=== PATIENT | male | born 1955 | race Caucasian/White ===

== ENCOUNTER → 2016-08-16 | Outpatient (CLI) | payer BC ==
[~2016-08-16] MED LIST: ABILIFY20 MG PO; ACTOS45 MG PO; ALLEGRA 180MG180 MG PO; ALLEGRA180 MG PO; AMLOPIDINE PO; ANTACID500 MG PO; ASPIRIN 32325 MG/TA1 PO; ASPIRIN 32325 MG/TAB PO; ASPIRIN 81M81 MG/TA2 PO; BACTRIM DS 8001 TAB PO; BASAGLAR K100 UNIT/1 SQ; BENICAR HCT 12.1 TAB PO; BUPROPION100 MG PO; BUTALBITAL/APAP1 TA1 PO; BYETTA SC; BYSTOLIC10 MG PO; CALCIUM 600 PLU1 TAB PO; CELEBREX 200MG200 MG PO; CELEBREX200 MG PO; CEPHALEXIN500 M1 PO; DAZIDOX20 MG PO; DETROL LA4 MG PO; DETROL LA4 PO; DILAUDID 2MG TAB2 MG PO; DIOVAN HCT 25 M1 TA1 PO; EDARB4025TAB PO; EFFEXOR-XR150 MG PO; EXCEDRIN1 TAB PO; FERROUS SU325 MG/TAB PO; FEXOFENADINE180 MG PO; FLEXERIL 1010 MG/TAB PO; FLEXERIL10 MG PO; FLONASE0.05 MG/AC NS; FLOVENT 110MCG7.9 GM IH; FLOVENT DI100 MCG/Ac IH; Fioricet PO; GLUCOPHAGE XR500 M1 PO; GLUCOPHAGE1000 MG PO; GOOD NEIGHBOR P10 M5 PO; HYTRIN 5MG C5 MG/CAP PO; IMITREX 25MG TA25 MG PO; IMITREX50 MG PO; K-DUR 10 MEQ T10 MEQ PO; L THYROXINE PO; LAMICTAL PO; LAMICTAL150 MG PO; LANTUS100 U/ML SC; LASIX 20MG TABL20 MG PO; LASIX 40MG TABL40 MG PO; LIPITOR 10MG10 MG PO; NOVOLOG 100U100 U/M1 SQ; NOVOLOG FLEX100 U/ML SQ; ORPHENADRINE C100 MG PO; OXYCODONE HCL5 MG PO; OXYCONTIN20 MG PO; OXYCONTIN30 MG PO; OXYCONTIN40 MG PO; PRANDIN PO; PRANDIN1 MG PO; PRILOSEC 20MG20 MG PO; PROVENTIL0.09 MG/A1 IH; PROVIGIL PO; RISPERDAL PO; ROXICODONE15 MG PO; SYNTHROID0.05 MG/TA PO; TERAZOSIN HCL PO; THERAPEUTIC VIT1 CAP PO; TYLENOL 500MG500 MG PO; ULTRAM 50MG TAB50 MG PO; ULTRAM50 MG PO; UNABLE; UNICOMPLEX1 CAP PO; VALTREX 50500 MG/TAB PO; VALTREX500 MG PO; VALTURNA 300 MG1 TAB PO; VENTOLIN0.09 MG IH; WELLBUTRIN SR100 M1 PO; ZOFRAN ODT4 MG PO
== END ==
LOC: BHSO 15:44
DX: F33.1 Major depressive disorder, recurrent, moderate (principal)

== ENCOUNTER → 2016-09-26 | Outpatient (CLI) | payer BC | LOC: COL.RAD 09-20 16:27 | DX: M19.011 Primary osteoarthritis, right shoulder (principal); M84.421S Pathological fracture, right humerus, sequela; M24.011 Loose body in right shoulder ==

== ENCOUNTER → 2016-11-13 | Outpatient (CLI) | payer BC ==
[~2016-11-13] VITALS: Ht 180.3 cm; Wt 175.5 kg
[2016-11-13 06:44] VITALS: BP 165/86; PULSE 80
[2016-11-13 07:52] VITALS: BP 139/74; PULSE 91
[2016-11-13 07:53] VITALS: BP 158/75; PULSE 90
[2016-11-13 07:54] VITALS: BP 165/78; PULSE 88
== END ==
LOC: COL.CARD 11-09 06:30
DX: R06.02 Shortness of breath (principal); I10 Essential (primary) hypertension
CPT/HCPCS: A9502; J2785

== ENCOUNTER → 2017-03-04 | Outpatient (CLI) | payer BC | LOC: BHSO 15:25 | DX: F31.73 Bipolar disorder, in partial remission, most recent episode manic (principal) ==

== ENCOUNTER → 2017-09-06 | Outpatient (CLI) | payer BC ==
[~2017-09-06] MED LIST changes: -ABILIFY20 MG PO; +ABILIFY30 MG PO; +EDARB4012.5TAB PO; +PROVIGIL200 MG PO
== END ==
LOC: BHSO 16:00
DX: F31.81 Bipolar II disorder (principal)
CPT/HCPCS: G0463

== ENCOUNTER → 2017-09-06 | Outpatient (CLI) | payer BC | LOC: COL.VAS 12:50 | DX: M79.661 Pain in right lower leg (principal) ==

== ENCOUNTER 2017-09-10 06:30 | Outpatient (RCR) | payer BC ==
[2017-08-15 14:17] LABS: CREATININE, serum 1.1 mg/dL (0.66-1.25)
[2017-08-16 06:52] VITALS: BP 144/64; PULSE 76; TEMP 97.8
[2017-08-16 18:21] VITALS: BP 154/62; PULSE 76; TEMP 97.9
[2017-08-17 07:30] VITALS: BP 151/67; PULSE 87; TEMP 97.6
[2017-08-18 08:04] LABS: CREATININE, serum 0.93 mg/dL (0.66-1.25)
[2017-08-18 08:17] VITALS: BP 129/59; PULSE 69; TEMP 98.2
[2017-08-18 08:42] LABS: VANCOMYCIN TROUGH 16.44 ug/mL (7.00-20.00)
[2017-08-19 07:01] VITALS: BP 142/58; PULSE 77
[2017-08-19 19:12] VITALS: BP 161/72; PULSE 81; TEMP 98.2
[2017-08-20 06:43] VITALS: BP 151/63; PULSE 74; TEMP 99.2
[2017-08-20 19:46] VITALS: BP 160/70; PULSE 70; TEMP 98.6
[2017-08-21 06:42] VITALS: BP 152/71; PULSE 73; TEMP 98.1
[2017-08-21 18:34] VITALS: BP 161/80; PULSE 78; TEMP 98.2
[2017-08-22 06:35] VITALS: BP 149/65; PULSE 77; TEMP 98.1
[2017-08-22 17:53] VITALS: BP 147/67; PULSE 84; TEMP 98.6
[2017-08-23 06:50] VITALS: BP 147/72; PULSE 69; TEMP 97.8
[2017-08-23 17:30] VITALS: BP 156/81; PULSE 97; TEMP 97.5
[2017-08-24 07:58] VITALS: BP 152/70; PULSE 73; TEMP 97.8
[2017-08-25 07:35] VITALS: BP 150/69; PULSE 69; TEMP 97.9
[2017-08-26 06:54] VITALS: BP 158/75; PULSE 71; TEMP 98.3
[2017-08-26 17:45] VITALS: BP 166/78; PULSE 77; TEMP 98.4
[2017-08-27 07:24] VITALS: BP 150/77; PULSE 75; TEMP 98.5
[2017-08-27 17:30] VITALS: BP 156/68; PULSE 80; TEMP 98.3
[2017-08-28 07:36] VITALS: BP 141/64; PULSE 76; TEMP 97.1
[2017-08-28 18:13] VITALS: BP 134/57; PULSE 83; TEMP 98.2
[2017-08-29 07:10] VITALS: BP 110/51; PULSE 80; TEMP 98.1
[2017-08-29 17:30] VITALS: BP 137/64; PULSE 79; TEMP 98.6
[2017-08-30 06:37] VITALS: BP 127/65; PULSE 85; TEMP 98
[2017-08-30 18:21] VITALS: BP 144/64; PULSE 78; TEMP 98
[2017-08-31 07:36] VITALS: BP 133/36; PULSE 82; TEMP 97.9
[2017-09-01 08:37] VITALS: BP 118/57; PULSE 74; TEMP 97.7
[2017-09-02 06:54] VITALS: BP 117/66; PULSE 69; TEMP 97.3
[2017-09-02 17:30] VITALS: PULSE 71; TEMP 98.2
[2017-09-03 06:35] VITALS: BP 137/61; PULSE 70; TEMP 97.8
[2017-09-03 17:39] VITALS: BP 140/65; PULSE 88; TEMP 98
[2017-09-04 06:40] VITALS: BP 142/75; PULSE 73; TEMP 98.4
[2017-09-05 06:49] VITALS: BP 135/65; PULSE 72; TEMP 97.8
[2017-09-05 17:26] VITALS: BP 174/74; PULSE 86; TEMP 98
[2017-09-06 06:39] VITALS: BP 131/64; PULSE 70; TEMP 97.9
[2017-09-06 17:30] VITALS: BP 136/68; PULSE 76; TEMP 98
[2017-09-07 07:38] VITALS: BP 125/56; PULSE 67; TEMP 98
[2017-09-08 07:59] VITALS: BP 134/68; PULSE 72; TEMP 98.4
[2017-09-09 06:51] VITALS: BP 118/51; PULSE 72; TEMP 98
[2017-09-09 17:30] VITALS: BP 155/60; PULSE 75; TEMP 98.6
[~2017-09-10] VITALS: Ht 180.3 cm; Wt 171.6 kg
[2017-09-10 07:07] VITALS: BP 136/55; PULSE 68; TEMP 98.2
== END 2017-09-10 09:04 | disposition home or self-care (01) ==
LOC: EUO 06:30
PROVIDERS: Anesthesiology Pain Medicine
DX: Z45.2 Encounter for adjustment and management of vascular access device (principal); Z48.00 Encounter for change or removal of nonsurgical wound dressing; Z95.9 Presence of cardiac and vascular implant and graft, unspecified
CPT/HCPCS: C1751; J1644; J3370; J7040; J7050

== ENCOUNTER → 2017-09-11 | Outpatient (CLI) | payer BC | LOC: COL.RAD 07:25 | DX: M79.604 Pain in right leg (principal); Z87.81 Personal history of (healed) traumatic fracture; R93.7 Abnormal findings on diagnostic imaging of other parts of musculoskeletal system ==

== ENCOUNTER → 2018-03-13 | Outpatient (CLI) | payer BC | LOC: BHSO 16:10 | DX: F31.76 Bipolar disorder, in full remission, most recent episode depressed (principal) | CPT/HCPCS: G0463 ==

== ENCOUNTER 2018-06-16 15:42 | Outpatient (RCR) | payer BC | END 2018-08-27 14:18 | disposition home or self-care (01) | LOC: WSPT 15:42 | DX: E11.622 Type 2 diabetes mellitus with other skin ulcer (principal); L97.929 Non-pressure chronic ulcer of unspecified part of left lower leg with unspecified severity; L97.919 Non-pressure chronic ulcer of unspecified part of right lower leg with unspecified severity ==

== ENCOUNTER → 2018-09-09 | Outpatient (CLI) | payer BC | LOC: BHSO 16:08 | DX: F31.78 Bipolar disorder, in full remission, most recent episode mixed (principal) | CPT/HCPCS: G0463 ==

== ENCOUNTER → 2019-03-06 | Outpatient (CLI) | payer BC | LOC: BHSO 16:11 | DX: F31.76 Bipolar disorder, in full remission, most recent episode depressed (principal) | CPT/HCPCS: G0463 ==

== ENCOUNTER 2019-05-04 06:44 | Emergency (ER) | payer BC ==
[~2019-05-04] VITALS: Ht 180.3 cm; Wt 159.1 kg
[2019-05-04 06:54] VITALS: TEMP 98.1
[2019-05-04 09:09] VITALS: BP 125/78; PULSE 76
== END 2019-05-04 09:11 | disposition home or self-care (01) ==
LOC: COL.ER 06:44
DX: R04.0 Epistaxis (principal); E11.9 Type 2 diabetes mellitus without complications; I10 Essential (primary) hypertension; E66.9 Obesity, unspecified; F31.9 Bipolar disorder, unspecified; F42.9 Obsessive-compulsive disorder, unspecified; Z79.82 Long term (current) use of aspirin; Z79.51 Long term (current) use of inhaled steroids; Z79.84 Long term (current) use of oral hypoglycemic drugs; Z68.42 Body mass index [BMI] 45.0-49.9, adult

== ENCOUNTER → 2019-09-03 | Outpatient (CLI) | payer BC | LOC: BHSO 16:13 | DX: F31.76 Bipolar disorder, in full remission, most recent episode depressed (principal) | CPT/HCPCS: G0463 ==

== ENCOUNTER → 2020-02-23 | Outpatient (CLI) | payer BC | LOC: BHSO 16:13 | DX: F31.76 Bipolar disorder, in full remission, most recent episode depressed (principal) | CPT/HCPCS: G0463 ==

== ENCOUNTER 2020-09-25 17:47 | Emergency (ER) | payer BC, OTHER ==
[~2020-09-25] VITALS: Ht 180.3 cm; Wt 168.2 kg
[2020-09-25 17:54] VITALS: TEMP 98.1
[2020-09-25 18:53] LABS: BASO % 0.4 % (0.0-2.0); EOS # 0.3 (0.0-0.7); EOS % 3.7 % (0-4.0); GRAN # 6.9 (1.4-6.5); GRAN % 76.3 % (42.2-75.2); HEMATOCRIT 38.8 % (42.0-52.0); HEMOGLOBIN 12.7 g/dl (13.5-18.0); LYMPH # 1.1 (1.2-3.4); LYMPH % 11.8 % (20.0-51.0); MEAN CELL VOLUME 101 fl (80.0-100.0); MEAN CORPUSCULAR HEMOGLOBIN 33 pg (27.0-31.0); MEAN CORPUSCULAR HGB CONC 33 g/dl (33.0-37.0); MONO # 0.7 (0.1-0.6); MONO % 7.2 % (1.7-9.3); PLATELET COUNT 290 K/mm3 (130-400); RED BLOOD COUNT 3.86 M/mm3 (4.20-5.60); REDCELL DISTRIBUTION WIDTH-CV 13.4 % (11.5-14.5)
[2020-09-25 19:05] LABS: BILIRUBIN,TOTAL 0.3 mg/dL (0.0-1.0); CALCIUM 9.7 mg/dL (8.4-10.2); CREATININE, serum 1.21 (0.66-1.25); POTASSIUM 4.2 mmol/L (3.4-5.0)
[2020-09-25] MEDS ORDERED: CIPRO 500MG TA500 MG PO (20:28)
[2020-09-25] MEDS ORDERED: CLEOCIN HCL300 MG PO (20:29)
[2020-09-25 21:18] VITALS: BP 130/66; PULSE 73
[2020-10-02] MEDS ORDERED: DOXYCYCLINE 10100 MG PO (14:11)
== END 2020-09-25 21:30 | disposition home or self-care (01) ==
LOC: COL.ER 17:47
PROVIDERS: Nurse Practitioner Family
DX: S81.802A Unspecified open wound, left lower leg, initial encounter (principal); S81.801A Unspecified open wound, right lower leg, initial encounter; L03.115 Cellulitis of right lower limb; L03.116 Cellulitis of left lower limb; E86.0 Dehydration; E11.9 Type 2 diabetes mellitus without complications; I10 Essential (primary) hypertension; F20.9 Schizophrenia, unspecified; F31.9 Bipolar disorder, unspecified; E66.01 Morbid (severe) obesity due to excess calories; G43.909 Migraine, unspecified, not intractable, without status migrainosus; G89.29 Other chronic pain; M54.5 Low back pain; Z79.4 Long term (current) use of insulin; Z91.14 Patient's other noncompliance with medication regimen; Z79.891 Long term (current) use of opiate analgesic; X58.XXXA Exposure to other specified factors, initial encounter
CPT/HCPCS: J0696; J7030

== ENCOUNTER 2021-06-15 07:27 | Emergency (ER) | payer BC, OTHER ==
[~2021-06-15] VITALS: Ht 180.3 cm; Wt 155.9 kg
[~2021-06-15 07:27] MED LIST changes: +CIPRO 500MG TA500 MG PO; +CLEOCIN HCL300 MG PO; +DOXYCYCLINE 10100 MG PO
[2021-06-15 07:28] VITALS: TEMP 98.2
[2021-06-15] MEDS ORDERED: NORCO 325 MG-51 TAB PO (09:37)
[2021-06-15 10:11] VITALS: BP 127/61; PULSE 74
== END 2021-06-15 10:26 | disposition home or self-care (01) ==
LOC: COL.ER 07:27
DX: S82.851A Displaced trimalleolar fracture of right lower leg, initial encounter for closed fracture (principal); E66.9 Obesity, unspecified; I10 Essential (primary) hypertension; E11.9 Type 2 diabetes mellitus without complications; F31.9 Bipolar disorder, unspecified; Z79.4 Long term (current) use of insulin; Z79.84 Long term (current) use of oral hypoglycemic drugs; Z79.899 Other long term (current) drug therapy; X50.1XXA Overexertion from prolonged static or awkward postures, initial encounter; W01.198A Fall on same level from slipping, tripping and stumbling with subsequent striking against other object, initial encounter
CPT/HCPCS: J7050